=== PATIENT | male | born 2005 | race Caucasian/White ===

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

== ENCOUNTER 2024-09-26 12:42 | Emergency (ER) | payer BC, MEDICAID, OTHER ==
[2024-09-26 12:59] LABS: BASOPHILS ABSOLUTE AUTO 0.02 K/uL (0.00-0.20); BASOPHILS PERCENT AUTO 0.2 % (0.0-2.0); EOSINOPHILS ABSOLUTE AUTO 0.02 K/uL (0.00-0.50); EOSINOPHILS PERCENT AUTO 0.2 % (0.0-5.0); HEMATOCRIT 47.6 % (39.0-49.0); HEMOGLOBIN 16.2 g/dL (13.1-16.8); IMMATURE GRAN ABSOLUTE AUTO 0.02 10^3/uL (0.00-0.04); IMMATURE GRAN PERCENT AUTO 0.2 % (0.0-0.4); LYMPHOCYTES ABSOLUTE AUTO 0.28 K/uL (0.50-3.50); LYMPHOCYTES PERCENT AUTO 2.2 % (10.0-50.0); MEAN CORPUSCULAR HEMOGLOBIN 29.4 pg (28.2-33.3); MEAN CORPUSCULAR VOLUME 86.4 fL (84.0-98.0); MONOCYTES ABSOLUTE AUTO 0.45 K/uL (0.00-1.00); MONOCYTES PERCENT AUTO 3.6 % (2.0-14.0); NEUTROPHILS ABSOLUTE AUTO 11.68 K/uL (1.40-7.00); NEUTROPHILS PERCENT AUTO 93.6 % (45.0-80.0); PLATELET COUNT,PLT 213 K/uL (150-350); RED BLOOD CELL COUNT 5.51 M/uL (4.33-5.41); WHITE BLOOD CELL COUNT,WBC 12.5 K/uL (4.0-10.2)
[2024-09-26] MEDS: Sodium Chloride 0.9% 1,000 ML IV ONE (12:59)
[2024-09-26] MEDS: Ondansetron 4 MG/2 ML SDV IVPUSH ONE (13:06)
[2024-09-26 13:19] LABS: ALANINE AMINOTRANSFERASE,ALT 62 U/L (12-78); ALBUMIN 4.1 g/dL (3.4-5.0); ALKALINE PHOSPHATASE 54 IU/L (46-116); ANION GAP 7.7 meq/L (7-15); ASPARTATE AMNIOTRANSFERASE,AST 24 U/L (15-37); BILIRUBIN TOTAL 1.5 mg/dL (0.2-1.0); BLOOD UREA NITROGEN,BUN 12 mg/dL (7-18); C-REACTIVE PROTEIN 0.43 mg/dL (0.05-0.30); CALCIUM 8.8 mg/dL (8.5-10.1); CARBON DIOXIDE,CO2 30.3 mmol/L (21.0-32.0); CHLORIDE,CL 104 mmol/L (98-107); CREATININE 0.94 mg/dL (0.51-1.17); GLUCOSE RANDOM 127 mg/dL (70-99); POTASSIUM,K 4.3 mmol/L (3.5-5.1); PROTEIN TOTAL,TP 7.6 g/dL (6.4-8.2); SODIUM,NA 142 mmol/L (136-145)
[2024-09-26 13:20] LABS: ESTIMATED GFR 119 mL/min (>=60)
[2024-09-26 14:03] LABS: APPEARANCE,URINE CLEAR; BILIRUBIN,URINE NEGATIVE (NEGATIVE); COLOR,URINE YELLOW; GLUCOSE,URINE NEGATIVE (NEGATIVE); KETONES,URINE NEGATIVE (NEGATIVE); LEUKOCYTE ESTERASE,URINE NEGATIVE (NEGATIVE); NITRITE,URINE NEGATIVE (NEGATIVE); OCCULT BLOOD,URINE NEGATIVE (NEGATIVE); PH,URINE 8.5 (5.0-9.0); PROTEIN,URINE TRACE mg/dL (NEGATIVE); UROBILINOGEN,URINE 0.2 E.U./dL (0.2-1.0)
[2024-09-26 14:09] LABS: BACTERIA,URINE NOT SEEN /HPF (NONE TO FEW); EPITHELIAL CELLS,URINE NOT SEEN /LPF; RBC,URINE NOT SEEN /HPF; WBC,URINE 0-5 /HPF
[2024-09-26 14:24] VITALS: BP 119/72; PULSE 106
== END 2024-09-26 14:30 | disposition home or self-care (01) ==
LOC: LL.ED 12:42
DX: R11.2 Nausea with vomiting, unspecified (principal); R19.7 Diarrhea, unspecified
CPT/HCPCS: 36415; 80053; 81001; 83605; 85025; 86140; 87428-QW; 96361; 96374; 99284-25; J2405; J7030